=== PATIENT | female | born 1980 | race Caucasian/White ===

== ENCOUNTER 2023-08-14 11:37 | Emergency (ER) | payer BC, SELFPAY ==
[2023-08-14 11:41] VITALS: BP 152/90
[2023-08-14 12:03] LABS: % Basophils 0.3 % (0-2); % Eosinophils 1.1 % (0-6); % Immature Granulocytes 0.3 % (0-0.5); % Lymphocytes 32.4 % (20.5-51.1); % Monocytes 5.1 % (1.7-9.3); % Neutrophils 60.8 % (42.2-75.2); Absolute Eosinophils 0.1 10^3/uL (0-0.7); Absolute Lymphocytes 3.7 10^3/uL (1.2-3.4); Absolute Monocytes 0.6 10^3/uL (0.1-0.6); Hematocrit 41.5 % (37.0-47.0); Hemoglobin 14.7 g/dL (12.0-16.0); Mean Corp Hgb Conc. 35.4 g/dL (33.0-37.0); Mean Corpuscular Hgb 31.8 pg (27.0-31.0); Mean Corpuscular Volume 89.8 fL (81.0-99.0); Nucleated Red Blood Cells % 0 %; Platelet Count 274 10^3/uL (130-400); Red Blood Cell Count 4.62 10^6/uL (4.20-5.40); Red Cell Dist. Width 11.8 % (11.5-14.5); White Blood Cell Count 11.4 10^3/uL (4.8-10.8)
[2023-08-14 12:15] LABS: ALT (SGPT) 35 U/L (0-35); AST (SGOT) 23 U/L (14-36); Albumin 4.5 g/dl (3.5-5.0); Alkaline Phosphatase 63 U/L (38-126); Blood Urea Nitrogen 16 mg/dl (7-17); Calcium 9.6 mg/dl (8.4-10.2); Carbon Dioxide 20 mmol/L (22-30); Chloride 109 mmol/L (98-107); Glucose 101 mg/dl (70-99); Sodium 138 mmol/L (135-145); Total Bilirubin 0.5 mg/dl (0.2-1.3); Total Protein 7.7 g/dl (6.3-8.2); eGFR > 60.00
[2023-08-14 12:16] LABS: Potassium 3.6 mmol/L (3.5-5.1)
--- NOTE | 2023-08-14 13:52 | ED.GENMED ---
History of Present Illness
General
Chief Complaint: Headache
Source: patient and spouse
Time Seen by Provider: 08/14/23 13:35
Travel History
Have you had any contact with someone who has COVID-19?: No
Do you have any symptoms of coronavirus? Fever > 100 degrees, chills, cough, shortness of breath, sore throat, loss of taste or smell, muscle aches, or headache?: No
History of Present Illness
History of Present Illness:
This patient is a 42-year-old female who had an epidural injection in her lower back on Thursday. Promptly after, she started to develop a headache, described as gradual in onset that she thought it first was related to caffeine withdrawal. The
headache got progressively worse throughout the day, and she also developed photophobia on Thursday. On morning, she woke up feeling better, but as she stood up she noticed much worse pain described as 'pressure, particularly at the top
of her head but also at neck with continued photophobia. She denies fever, nausea, vomiting, double vision, numbness, tingling, focal weakness, or other complaints. She notes that the headache and symptoms are much improved when she lays supine.
Past History
Past History
ED Past Medical History: None
ED Past Surgical History: Other (Discectomy, orthopedic, D&C)
Social History
Tobacco: Non-smoker
Alcohol: None
Drug: None
Personal:
Living: with family
Phy Exam
Physical Exam
Physical Exam:
GENERAL: Alert , in no apparent distress, wearing sunglasses
EYE: pupils equal and reactive, EOMI, no nystagmus, mild objective photophobia
NECK: Supple, no significant adenopathy, nods yes and no spontaneously.
ENT: o/p clr, mmm.
CARDIAC: Regular rate and rhythm .
LUNGS: Clear breath sounds bilaterally, no acute respiratory distress, no wheezes/rales/rhonchi
ABDOMEN: Soft, without focal tenderness, no r/g, no cvat
NEUROLOGICAL: Alert and oriented, no focal neuro deficits, [id number] normal, cranial nerves II through XII intact, motor 5 out of 5, sensory intact, negative Kernig and Brudzinski
SKIN: Warm and dry, skin intact.
MUSCULOSKELETAL: No edema, well perfused.
PSYCH: Normal and appropriate interaction.
Course
Orders/Labs/Results
Orders:
Orders
08/14/23 11:48
Electrocardiogram (*1) Urgent
Reason for Study: Tachycardia
EKG- Treatment ONCE
08/14/23 11:52
CMP [Comprehensive Metabolic Panel] Urgent
Complete Blood Count/With Diff Urgent
08/14/23 13:52
0.9% Sodium Chloride 1000 ml [Nss] 1,000 ml IV BOLUS
Ketorolac [Toradol] 15 mg IV NOW STA
08/14/23 14:48
Morphine Sulfate 4 mg IV NOW STA
Abnormal Lab Results
08/14/23
11:52
WBC 11.4 H 10^3/uL
(4.8-10.8)
MCH 31.8 H pg
(27.0-31.0)
Absolute Neuts (auto) 7.0 H 10^3/uL
(1.4-6.5)
Absolute Lymphs (auto) 3.7 H 10^3/uL
(1.2-3.4)
Chloride 109 H mmol/L
(98-107)
Carbon Dioxide 20 L mmol/L
(22-30)
Glucose 101 H mg/dl
(70-99)
08/14/23 11:52
08/14/23 11:52
Vital Signs
Initial and Last Documented VS:
Initial Vital Signs
Temp Pulse Resp BP Pulse Ox
98.1 F 133 20 152/90 100
08/14/23 11:41 08/14/23 11:41 08/14/23 11:41 08/14/23 11:41 08/14/23 11:41
Last Documented Vital Signs
Temp Pulse Resp BP Pulse Ox
98.1 F 74 16 125/84 97
08/14/23 11:41 08/14/23 16:40 08/14/23 16:40 08/14/23 16:40 08/14/23 16:40
*Critical Care Note
Total Time (30-74mins, 75-104mins- exclusive of procedures): Not Applicable
Update Note
Update Note:
Patient presents to the Emergency Department with ____headache
Number and Complexity of Problems Addressed at the Encounter
� Chronic conditions affecting care:
� Acute Exacerbation and/or Progression of Chronic Illness:
� Differential Diagnosis includes: But not limited to postprocedure headache, meningitis, encephalitis, migraine, tension headache, etc.
Amount and/or Complexity of Data to be Reviewed and Analyzed
� I performed an independent evaluation of and my interpretation is:
EKG:
CT:
Xrays:
Laboratory Studies:
Other:
� Review of other/old records reveals:
� Clinical information was obtained by an independent historian: who is at bedside
� Prescriptions/Medications Considered but not given:
� Further testing considered but not performed:
Risk of Complications and/or Morbidity or Mortality of Patient Management
� Social determinants of health affecting care:
� Discussion with other providers (PCP, Hospitalists, Consultants, etc):
� Escalation of care including admission/observation vs risk of discharge considered: Clinically I strongly suspect postprocedural headache particularly given positional nature. Highly doubt infectious process such as
meningitis/encephalitis given lack of 'red flag' findings on history or physical exam. Case discussed with Dr. Lisandro Reddy who performed the procedure on Thursday. He indicates that literature does not support performing a blood patch until at
least 1 week of symptoms, and recommend symptomatic management in the ED and at home and for patient to make an appointment with him for early next week.
419pm several reassessments, s/p meds and supine, pt was feeling better, pain returned upon upright position..decolines more pain meds, would like to go home and manage there, d/w her r/b of meds, reasons to rted and import of f/u.
ED Attending Note
-
Portions of this chart may have been created with voice recognition software.� Occasional wrong word or��sound alike� substitutions may have occurred due to the inherent limitations of voice recognition software.
Discharge Plan
Departure
Patient Disposition: Home (Routine Discharge)
Date of Disposition: 08/14/23
Time of Disposition: 16:19
Patient with high blood pressure during this ER visit?: Yes
Condition: Good
Discharge Problem:
Post-dural puncture headache
Instructions: Spinal headache, BLOOD PRESSURE
Prescriptions:
New
azhnbtuzvm-[id number]-bruo [Fioricet] 50-300-40 mg capsule
1 cap PO Q8H PRN (Reason: Pain) Qty: 17 0RF
Referrals:
Lisandro Reddy, DO [Non-Admitting Privileges] - Tomorrow
Guillermina Osuna CRNP [Family Provider] -
Activity Restrictions/Additional Instructions:
PLEASE CONTACT DR CLIFFORD VALDEZ FOR AN APPOINTMENT AND CONSIDERATION OF A BLOOD PATCH. IF YOU DEVELOP FEVER, WORSENING/NEW HEADACHE, SWELLING, DIFFICULTY STANDING/WALKING, VOMITING, OR OTHER WORRISOME SIGNS. GO TO THE ER IMMEDIATELY!
Interventions
Interventions:
*Risk Screen - Suicide Last Done: 08/14/23 15:07
*General Assessment Last Done: 08/14/23 15:07
*Neglect/Abuse Screening Last Done: 08/14/23 15:07
ED- Fall Risk Assessment Last Done: 08/14/23 15:07
*ED COVID-19 Vaccine History Last Done: 08/14/23 15:07
*Nursing Disposition Last Done: 08/14/23 16:40
ED- Neurological Assessment Last Done: 08/14/23 14:11
Discharge Date and Time
Discharge Date/Time: 08/14/23 16:40
Print Language: GUAMANIAN
[2023-08-14] MEDS: NSS 1000 IV (13:58)
[2023-08-14] MEDS: TORADOL 15 MG IV (14:01)
--- NOTE | 2023-08-14 15:06 | EDRN ---
Pt states lying down flat w/out a pillow head pain is 3/10 but on sitting up pain was again 10/10. Pt OOB to BR at this time.
[2023-08-14 15:07] VITALS: BMI 26.2
[2023-08-14] MEDS: MORPHINE SULFATE 4 MG IV (15:08)
[2023-08-14 15:11] VITALS: BP 131/81
[2023-08-14 16:40] VITALS: BP 125/84
[2023-08-14 17:40] VITALS: BP 125/84
== END 2023-08-14 16:40 | disposition home or self-care (01) ==
LOC: EMR 11:37
PROVIDERS: Emergency Medicine; EMERGENCY PHYSICIAN Emergency Medicine; FAMILY PHYSICIAN Nurse Practitioner Family
DX: G97.1 Other reaction to spinal and lumbar puncture (principal); R51.9 Headache, unspecified
CPT/HCPCS: 99284; 96374; 96375; 96361; 80053; 85025; 93005